=== PATIENT | male | born 1980 | race Caucasian/White ===

== ENCOUNTER 2017-01-06 08:53 | Emergency (ER) | payer MEDICARE, OTHER ==
[~2017-01-06 08:53] MED LIST: ADVAIR 115-21; ADVAIR 250-501 EACH IH; ALBUTEROL 0.5ML INH; ALBUTEROL17 GM; BACTRIM DS TABL1 TA1 PO; CIALIS PO; CIPRO PO; COLACE PO; DUONEB 2.5-0.5 M3 ML NEB; FLAGYL PO; FLOVENT HFA12 GM; KEFLEX500 MG PO; LEVAQUIN; LEVITRA PO; LISINOPRIL PO; LISINOPRIL10 MG PO; LISINOPRIL20 MG PO; LORTAB 10-3251 EACH PO; LORTAB 10-5001 EACH; LORTAB 5/500 TA1 TA2 PO; LORTAB 7.5-5001 TAB PO; LORTAB 7.51 TAB 7.5/ PO; MAXZIDE-25 MG1 UDTAB PO; MEDROL PO; METOPROLOL TAR25 MG PO; METOPROLOL TART25 MG PO; MIDRIN CAPSULE1 CAP; NAPROXEN PO; NEXIUM PO; NORCO 10/325 TA1 TAB PO; NORCO 5/325 TAB1 TAB PO; OXYCODONE15 MG PO; PHENERGAN PO; PHENERGAN SUPP25 MG PR; PRILOSEC PO; PROVENTIL0.83 MG/ML IH; REGLAN PO; VENTOLIN5 MG/ML IH; ZITHROMAX PO
== END 2017-01-06 12:19 | disposition home or self-care (01) ==
LOC: CED 08:53
DX: H61.23 Impacted cerumen, bilateral (principal); H66.92 Otitis media, unspecified, left ear; K21.9 Gastro-esophageal reflux disease without esophagitis; J45.909 Unspecified asthma, uncomplicated; I10 Essential (primary) hypertension; Z88.0 Allergy status to penicillin; Z91.040 Latex allergy status; Z88.8 Allergy status to other drugs, medicaments and biological substances
CPT/HCPCS: 69209; 99283